=== PATIENT | female | born 1960 | race Caucasian/White ===

== ENCOUNTER 2018-12-29 10:35 | Emergency (ER) | payer OTHER ==
[2018-12-29 11:34] VITALS: BP 126/62
--- NOTE | 2018-12-29 11:44 | UC ---
General HPI - HPI Summary HPI Summary: on of last week, pt slipped on something wet near the registers and fell while at [employer]. she injured her R knee. she is here for ongoing pain and notes some swelling. - History of Current Complaint Chief Complaint: UCLowerExtremity Stated Complaint: S/P FALL RIGHT KNEE Time Seen by Provider: 12/29/18 11:33 Hx Obtained From: Patient Hx Last Menstrual Period: N/A Onset/Duration: Sudden Onset Timing: Constant Pain Intensity: 7 Associated Signs & Symptoms: Negative: Fever, Weakness - Allergy/Home Medications Allergies/Adverse Reactions: Allergies Allergy/AdvReac Type Severity Reaction Status Date / Time amoxicillin [From Augmentin] Allergy Swelling Verified 12/29/18 11:35 Of Face,Lips,& Throat clavulanic acid Allergy Swelling Verified 12/29/18 11:35 [From Augmentin] Of Face,Lips,& Throat Home Medications: Home Medications Cholecalciferol TAB* [Vitamin D TAB*] 400 unit PO DAILY 12/29/18 [History Confirmed 12/29/18] Thyroid,Pork [Establishment Guide Thyroid] 120 mg PO DAILY 12/29/18 [History Confirmed 12/29/18] PMH/Surg Hx/FS Hx/Imm Hx Endocrine History: Thyroid Disease - Family History Known Family History: Positive: Non-Contributory - Social History Alcohol Use: Rare Substance Use Type: None Smoking Status (MU): Former Smoker Review of Systems All Other Systems Reviewed And Are Negative: No Constitutional: Negative: Fever Skin: Negative: Rash Musculoskeletal: Positive: Edema - R knee. Negative: Decreased ROM Neurological: Negative: Weakness, Paresthesia, Numbness Physical Exam Triage Information Reviewed: Yes Appearance: Well-Appearing Vital Signs: Initial Vital Signs Temp 98.0 F 12/29/18 11:27 Pulse 86 12/29/18 11:27 Resp 17 12/29/18 11:27 BP 126/62 12/29/18 11:27 Pulse Ox 97 12/29/18 11:27 Vital Signs Reviewed: Yes Cardiovascular: Positive: RRR Musculoskeletal: Positive: Other: - RLE: hip, ankle, achilles and foot are without deformity or tenderness. knee=mildly swollen and tender over medial side of joint line. active rom is intact. post xray, no joint laxity. Neurological: Positive: Alert Psychological: Positive: Age Appropriate Behavior Skin Exam: Normal Diagnostics - Radiology No standard instances Radiology Interpretation Completed By: Radiologist - IMPRESSION: OSTEOARTHRITIS. NO ACUTE OSSEOUS INJURY. IF SYMPTOMS PERSIST, RECOMMEND REPEAT IMAGING. Course/Dx - Course Course Of Treatment: PT DECLINING NSAID TX - Differential Dx - Multi-Symptom Differential Diagnoses: Other - OA on xray.no concern for infection or fx. + swelling and medial joint line pain/tenderness thus possible meniscal injury. - Diagnoses Provider Diagnosis: Right knee pain, Swelling of joint, knee, right Discharge - Sign-Out/Discharge Documenting (check all that apply): Patient Departure All imaging exams completed and their final reports reviewed: Yes - Discharge Plan Condition: Stable Disposition: HOME Patient Education Materials: Swollen Knee Joint (ED), Knee Pain (ED) Referrals: Tex Hall MD [Medical Doctor] - As Soon As Possible Additional Instructions: USE ELLYN DURING DAY (REMOVE AT BEDTIME) PLUS USE CANE UNTIL CLEARED BY ORTHOPEDICS. - Billing Disposition and Condition Condition: STABLE Disposition: Home
[2018-12-29] MEDS ORDERED: Ibuprofen ADULT LIQ* 600 MG/30 ML UDC PO ONE (12:23)
== END 2018-12-29 12:33 | disposition home or self-care (01) ==
LOC: UCCORT 10:35
DX: M25.561 Pain in right knee (principal); M25.461 Effusion, right knee; Z87.891 Personal history of nicotine dependence; E07.9 Disorder of thyroid, unspecified
CPT/HCPCS: 99203; A9270-GY; G0463

== ENCOUNTER 2019-03-17 09:20 | Emergency (ER) | payer OTHER ==
--- OUTSIDE RECORDS SUMMARY | 2019-03-17 09:28 | XMS REPORT | Continuity of Care Document ---
:1960 External Reference #:[id number] Author Name Thanh Williamson MD (transmitted by agent of provider Jose Feliciano) Address [address] [place] [address] Care Team Providers Name Role Phone FARRAH Carrasco MD - Internal Care Team Information Extension Course Counselor Medicine Patient's Choice Care Team Information Extension Course Counselor Unavailable Problems Description No Information Available Social History Type Date Description Comments Sex Unknown ETOH Use Rarely consumes alcohol Tobacco Use Start: Unknown Patient has never smoked Smoking Status Reviewed: 02/15/19 Patient has never smoked Exercise Type/Frequency Does not exercise Allergies, Adverse Reactions, Alerts Active Allergies Reaction Severity Comments Date Augmentin neck turned blue 12/31/2018 Steroids reddness and sweating 12/31/2018 Medications Active Medications SIG Qnty Indications Ordering Provider Date Naproxen 1 by mouth 60tabs M17.11 Tex Hall, 12/31/2018 500mg Tablets twice a day w food 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 Thyroid 2 tabs by Unknown 60mg Tablets mouth daily 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 Thyroid 1 tab by mouth Unknown 30mg Tablets daily Acetaminophen 1/2 tab by Unknown 325mg Tablets mouth as needed for pain Immunizations CPT Code Status Date Vaccine Lot # [id number] Given 02/13/2019 Influ Virus Vaccine, Quadrivalent, Split Virus, Im Fluzone not PF Vital Signs Date Vital Result Comment 02/15/2019 2:15pm Height 60.5 inches 5'0.50" Weight 217.00 lb Heart Rate 92 /min BP Systolic 124 mmHg BP Diastolic 66 mmHg Respiratory Rate 18 /min BMI (Body Mass Index) 41.7 kg/m2 01/26/2019 9:23am Height 60.5 inches 5'0.50" Weight 220.00 lb Heart Rate 85 /min BP Systolic Sitting 128 mmHg BP Diastolic Sitting 84 mmHg Respiratory Rate 16 /min Pain Level 0 O2 % BldC Oximetry 98 % BMI (Body Mass Index) 42.3 kg/m2 Results Description No Information Available Procedures Description No Information Available Medical Devices Description No Information Available Encounters Type Date Location Provider Dx Diagnosis Office Visit 01/26/2019 [facility] Tex Hall, M17.11 Unilateral primary 9:15a at [place] osteoarthritis, right knee Office Visit 01/15/2019 [facility] Thanh E03.9 Hypothyroidism, 11:00a [place] unspecified Office Visit 12/31/2018 [facility] Tex Hall, M17.11 Unilateral primary 1:00p at [place] osteoarthritis, right knee M25.461 Effusion, right knee Assessments Date Code Description Provider 02/15/2019 Z00.00 Encounter for general adult medical Thanh Williamson MD examination without abnormal findings 02/15/2019 E03.9 Hypothyroidism, unspecified Thanh Williamson MD 01/26/2019 M17.11 Unilateral primary osteoarthritis, right Tex Hall MD knee 01/15/2019 E03.9 Hypothyroidism, unspecified Thanh Williamson MD 12/31/2018 M17.11 Unilateral primary osteoarthritis, right Tex Hall MD knee 12/31/2018 M25.461 Effusion, right knee Tex Hall MD Plan of Treatment Future Appointment(s):02/17/2019 11:00 am - Nurse Schedule Loc 73 at [facility]04/20/2019 9:30 am - Thanh Williamson MD at [facility] - Thanh Williamson MDZ00.00 Encounter for general adult medical examination without abnormal findingsNew Labs:Basic Metabolic Panel, Ordered: CBC Auto Diff, Ordered: 02/15/19Lipid Profile (Trig/Chol/HDL), Ordered: E03.9 Hypothyroidism, unspecifiedNew Labs:TSH (Thyroid Stim Horm), Ordered : 02/15/19Free T4 (Free Thyroxine), Ordered: 02/15/19T3 Free, Ordered: Vitamin D Total 25(Oh), Ordered: 02/15/19 Functional Status Description No Information Available Mental Status Description No Information Available Referrals Description No Information Available
--- OUTSIDE RECORDS SUMMARY | 2019-03-17 09:28 | XMS REPORT | Continuity of Care Document ---
:1960 External Reference #:[id number] Author Name Tex Hall MD (transmitted by agent of provider Margarito Bravo) Address [address] [place] [address] [place] [address] Care Team Providers Name Role Phone FARRAH Carrasco MD - Internal Care Team Information Stained Glass Joiner Medicine Patient's Choice Care Team Information Stained Glass Joiner Unavailable Problems Description No Information Available Social History Type Date Description Comments Sex Unknown ETOH Use Rarely consumes alcohol Tobacco Use Start: Unknown Patient has never smoked Smoking Status Reviewed: 01/26/19 Patient has never smoked Exercise Type/Frequency Does not exercise Allergies, Adverse Reactions, Alerts Active Allergies Reaction Severity Comments Date Augmentin neck turned blue 12/31/2018 Steroids reddness and sweating 12/31/2018 Medications Active Medications SIG Qnty Indications Ordering Provider Date Naproxen 1 by mouth 60tabs M17.11 Tex Hall, 12/31/2018 500mg Tablets twice a day w food 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 Thyroid 2 tabs by Unknown 60mg Tablets mouth daily 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 MOLD Thyroid 1 tab by mouth Unknown 30mg Tablets daily Acetaminophen 1/2 tab by Unknown 325mg Tablets mouth as needed for pain Ibuprofen 1 tab by mouth Unknown 200mg Tablets as needed Immunizations Description No Information Available Vital Signs Date Vital Result Comment 01/26/2019 9:23am Height 60.5 inches 5'0.50" Weight 220.00 lb Heart Rate 85 /min BP Systolic Sitting 128 mmHg BP Diastolic Sitting 84 mmHg Respiratory Rate 16 /min Pain Level 0 O2 % BldC Oximetry 98 % BMI (Body Mass Index) 42.3 kg/m2 01/15/2019 11:19am Height 60.5 inches 5'0.50" Weight 220.00 lb Heart Rate 88 /min BP Systolic 124 mmHg BP Diastolic 84 mmHg Respiratory Rate 16 /min Pain Level 0 O2 % BldC Oximetry 98 % room air BMI (Body Mass Index) 42.3 kg/m2 Results Description No Information Available Procedures Description No Information Available Medical Devices Description No Information Available Encounters Type Date Location Provider Dx Diagnosis Office Visit 01/15/2019 [facility] Thanh E03.9 Hypothyroidism, 11:00a [place] unspecified Office Visit 12/31/2018 [facility] Tex Hall, M17.11 Unilateral primary 1:00p [facility] AT [facility] right knee M25.461 Effusion, right knee Assessments Date Code Description Provider 01/26/2019 M17.11 Unilateral primary osteoarthritis, right Tex Hall MD knee 01/15/2019 E03.9 Hypothyroidism, unspecified Thanh Williamson MD 12/31/2018 M17.11 Unilateral primary osteoarthritis, right Tex Hall MD knee 12/31/2018 M25.461 Effusion, right knee Tex Hall MD Plan of Treatment Future Appointment(s):04/20/2019 9:30 am - Thanh Williamson MD at [facility]01/26/2019 - Tex Hall, MDM17.11 Unilateral primary osteoarthritis, right kneeComments:home exercises sheetsFollow up:Follow up: As needed Functional Status Description No Information Available Mental Status Description No Information Available Referrals Description No Information Available
[2019-03-17 09:37] VITALS: BP 133/84
== END 2019-03-17 10:11 | disposition left against medical advice (07) ==
LOC: UCCORT 09:20
DX: Z53.21 Procedure and treatment not carried out due to patient leaving prior to being seen by health care provider (principal)

== ENCOUNTER 2019-06-21 17:20 | Emergency (ER) | payer OTHER ==
--- OUTSIDE RECORDS SUMMARY | 2019-06-21 17:40 | XMS REPORT | Continuity of Care Document ---
:1960 External Reference #:[id number] Author Name Thanh Williamson MD (transmitted by agent of provider Katie Tan) Address [address] [place] [address] Care Team Providers Name Role Phone FARRAH Carrasco MD - Internal Care Team Information Rn Chemical Dependency Medicine Patient's Choice Care Team Information Rn Chemical Dependency Unavailable [facility] - Care Team Information Rn Chemical Dependency [phone] [facility] Care Team Information Rn Chemical Dependency [phone] Problems Description No Information Available Social History Type Date Description Comments Sex Unknown ETOH Use Rarely consumes alcohol Tobacco Use Start: Unknown Patient has never smoked Smoking Status Reviewed: 05/24/19 Patient has never smoked Exercise Type/Frequency Does not exercise Allergies, Adverse Reactions, Alerts Active Allergies Reaction Severity Comments Date Augmentin neck turned blue 12/31/2018 Steroids reddness and sweating 12/31/2018 Medications Active Medications SIG Qnty Indications Ordering Provider Date Tramadol HCL 1 by mouth four 20tabs G99.0 Thanh 05/24/2019 50mg Tablets times a day MD [place] Bupropion Hydrochloride 1 daily 30tabs F33.1 Thanh 04/28/2019 ER (SR) MD [place] 100mg Tablets ER 12HR Triamcinolone Acetonide apply to rash 1units S90.561A Thanh 03/17/2019 bid x 7 days MD [place] 0.1% Cream Naproxen 1 by mouth 60tabs M17.11 Tex Hall 12/31/2018 500mg Tablets twice a day w food METAL HANGER Thyroid 2 tabs by Unknown 60mg Tablets mouth daily METAL HANGER Thyroid 1 tab by mouth Unknown 30mg Tablets daily Acetaminophen 1/2 tab by Unknown 325mg Tablets mouth as needed for pain History Medications Oxycodone-Acetaminophen 1 every 6 20tabs G99.0 Thanh 03/29/2019 - 5-325mg Tablets hours as [place] 05/24/2019 needed pain Medications Administered in Office Medication SIG Qnty Indications Ordering Provider Date PPD Thanh Williamson MD 02/15/2019 Injection Immunizations CPT Code Status Date Vaccine Lot # [id number] Given 02/13/2019 Influ Virus Vaccine, Quadrivalent, Split Virus, Im Fluzone not PF Vital Signs Date Vital Result Comment 05/24/2019 10:02am Heart Rate 82 /min BP Systolic 120 mmHg BP Diastolic 86 mmHg 04/28/2019 1:50pm Weight 214.00 lb BP Systolic 150 mmHg BP Diastolic 90 mmHg Results Test Acquired Date Facility Test Result H/L Range Note Basic Metabolic 05/21/2019 [facility] Sodium 140 mmol/L Normal 135-[address] [place] [address] [phone] Potassium 4.1 mmol/L Normal 3.5-5.0 Chloride 105 mmol/L Normal 101-111 Co2 Carbon Dioxide 25 mmol/L Normal 22-32 Anion Gap 10 mmol/L Normal 2-11 Glucose 166 mg/dL High 70-100 Blood Urea Nitrogen 11 mg/dL Normal 6-24 Creatinine 0.51 mg/dL Normal 0.51-0.95 BUN/Creatinine Ratio 21.6 High 8-20 Calcium 9.9 mg/dL Normal 8.6-10.3 Egfr Non- 124.3 >60 Egfr 150.4 >60 1 Laboratory test 05/21/2019 [facility] Hemoglobin A1c 6.8 % High 4.0-5.[address] (Glyco HGB) [place] [address] [phone] Lipid Profile 05/21/2019 [facility] Triglycerides 431 3 (Trig/Chol/HDL) [address] mg/[place] [address] [phone] Cholesterol 175 mg/dL 4 HDL Cholesterol 31.8 mg/dL 5 LDL Cholesterol (SEE NOTE) mg/dL 6 Laboratory test 05/21/2019 [facility] LDL Cholesterol 108 mg/dL [address] [place] [address] [phone] Laboratory test 04/21/2019 [facility] TSH (Thyroid 1.07 Normal 0.34- finding [address] Stim Horm) mcIU/mL 5.60 [place] [address] [phone] Free T4 (Free Thyroxine) 0.63 ng/dL Normal 0.61-1.12 T3 Free 4.50 pg/mL High 2.5-3.9 Vitamin D Total 25(Oh) 22.6 ng/mL Normal 20-50 8 Basic Metabolic 04/21/2019 [facility] Sodium 137 mmol/L Normal 135-[address] [place] [address] [phone] Potassium 4.2 mmol/L Normal 3.5-5.0 Chloride 101 mmol/L Normal 101-111 Co2 Carbon Dioxide 24 mmol/L Normal 22-32 Anion Gap 12 mmol/L High 2-11 Glucose 188 mg/dL High 70-100 Blood Urea Nitrogen 13 mg/dL Normal 6-24 Creatinine 0.59 mg/dL Normal 0.51-0.95 BUN/Creatinine Ratio 22.0 High 8-20 Calcium 10.9 mg/dL High 8.6-10.3 Egfr Non- 105.1 >60 Egfr 127.1 >60 9 CBC Auto 04/21/2019 [facility] White Blood 6.7 10^3/uL Normal 3.5-10.[address] [place] [address] [phone] Red Blood Count 5.05 10^6/uL High 3.70-4.87 Hemoglobin 15.6 g/dL Normal 12.0-16.0 Hematocrit 44 % Normal 35-47 Mean Corpuscular Volume 87 fL Normal 80-97 Mean Corpuscular Hemoglobin 31 pg Normal 27-31 Mean Corpuscular HGB Conc 36 g/dL Normal 31-36 Red Cell Distribution Width 15 % Normal 10-15 Platelet Count 239 10^3/uL Normal 150-450 Mean Platelet Volume 7.7 fL Normal 7.4-10.4 Abs Neutrophils 3.9 10^3/uL Normal 1.5-7.7 Abs Lymphocytes 2.0 10^3/uL Normal 1.0-4.8 Abs Monocytes 0.6 10^3/uL Normal 0-0.8 Abs Eosinophils 0.1 10^3/uL Normal 0-0.6 Abs Basophils 0.1 10^3/uL Normal 0-0.2 Abs Nucleated RBC 0.0 10^3/uL Granulocyte % 58.5 % Lymphocyte % 30.2 % Monocyte % 8.3 % Eosinophil % 2.0 % Basophil % 1.0 % Nucleated Red Blood Cells % 0.2 Lipid Profile 04/21/2019 [facility] Triglycerides 648 mg/dL 10 (Trig/Chol/HDL) [address] [place] [address] [phone] Cholesterol 210 mg/dL 11 HDL Cholesterol 33.7 mg/dL 12 LDL Cholesterol (SEE NOTE) mg/dL 13 Laboratory test 04/21/2019 [facility] LDL Cholesterol 121 mg/dL [address] [place] [address] [phone] 1 Because ethnic data is not always readily available, this report includes an eGFR for both -Americans and non- Americans. The National Kidney Disease Education Program (NKDEP) does not endorse the use of the MDRD equation for patients that are not between the ages of 18 and 70, are , have extremes of body size, muscle mass, or nutritional status, or are non- or non-. According to the National Kidney Foundation, irrespective of diagnosis, the stage of the disease is based on the level of kidney function: Stage Description GFR(mL/min/1.73 m(2)) 1 Kidney damage with normal or decreased GFR 90 2 Kidney damage with mild decrease in GFR 60-89 3 Moderate decrease in GFR 30-59 4 Severe decrease in GFR 15-29 5 Kidney failure <15 (or dialysis) 2 Therapeutic target for the treatment of diabetes mellitus patients is <7% HBA1C, and in selective patients <6.0%. Please refer to [place] Diabetes Association diabetic care guidelines for further information. 3 Desirable: <150 Borderline High: 150-199 High: 200-499 Very High: >500 4 Desirable: <200 Borderline High: 200-239 High: >239 5 Low: <40 Desirable: 40-60 High: >60 6 Unable to calculate LDL as triglyceride is > 400 7 Desirable: <100 Near Optimal: 100-129 Borderline High: 130-159 High: 160-189 Very High: >189 8 Total 25-Hydroxyvitamin D2 and D3 (25-OH-VitD) <10 ng/mL (severe deficiency) 10-19 ng/mL (mild to moderate deficiency) 20-50 ng/mL (optimum levels) 51-80 ng/mL (increased risk of hypercalciuria) >80 ng/mL (toxicity possible) 9 Because ethnic data is not always readily available, this report includes an eGFR for both -Americans and non- Americans. The National Kidney Disease Education Program (NKDEP) does not endorse the use of the MDRD equation for patients that are not between the ages of 18 and 70, are , have extremes of body size, muscle mass, or nutritional status, or are non- or non-. According to the National Kidney Foundation, irrespective of diagnosis, the stage of the disease is based on the level of kidney function: Stage Description GFR(mL/min/1.73 m(2)) 1 Kidney damage with normal or decreased GFR 90 2 Kidney damage with mild decrease in GFR 60-89 3 Moderate decrease in GFR 30-59 4 Severe decrease in GFR 15-29 5 Kidney failure <15 (or dialysis) 10 Desirable: <150 Borderline High: 150-199 High: 200-499 Very High: >500 11 Desirable: <200 Borderline High: 200-239 High: >239 12 Low: <40 Desirable: 40-60 High: >60 13 Unable to calculate LDL as triglyceride is > 400 14 Desirable: <100 Near Optimal: 100-129 Borderline High: 130-159 High: 160-189 Very High: >189 Procedures Description No Information Available Medical Devices Description No Information Available Encounters Type Date Location Provider Dx Diagnosis Office Visit 04/28/2019 [facility] Thanh G99.0 Autonomic 1:45p [place] neuropathy in diseases classified elsewhere F33.1 Major depressive disorder, recurrent, moderate T45.1x5D Adverse effect of antineoplastic and immunosup drugs, subs 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 Z85.3 Personal history of malignant neoplasm of breast Office Visit 03/29/2019 [facility] Primary Thanh C50.919 Malignant 10:15a Sabine Williamson MD neoplasm of unsp site of unspecified female breast 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.0 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 Office Visit 03/17/2019 [facility] Griselda [place], S90.561A Insect bite 10:20a [place]in at [place] (nonvenomous), right [facility] ankle, initial encounter S90.562A Insect bite (nonvenomous), left ankle, initial encounter Office Visit 02/15/2019 2:00p [facility] Primary Thanh Williamson, Z00.00 Encntr for Care general adult medical exam w/o abnormal findings E03.9 Hypothyroidism, unspecified Z11.1 Encounter for screening for respiratory tuberculosis Office Visit 01/26/2019 Renny Robison M17.11 Unilateral primary 9:15a Orthopedics at [place] osteoarthritis, [place] right knee Office Visit 01/15/2019 [facility] Thanh E03.9 Hypothyroidism, 11:00a kaila Williamson MD Office Visit 12/31/2018 Renny Robison M17.11 Unilateral primary 1:00p Orthopedics at [place] osteoarthritis, [place] right knee M25.461 Effusion, right knee Assessments Date Code Description Provider 05/24/2019 G99.0 Autonomic neuropathy in diseases Thanh Williamson MD classified elsewhere 05/24/2019 F33.1 Major depressive disorder, recurrent, Thanh Williamson MD moderate 04/28/2019 G99.0 Autonomic neuropathy in diseases Thanh Williamson MD classified elsewhere 04/28/2019 F33.1 Major depressive disorder, recurrent, Thanh Williamson MD moderate 04/28/2019 T45.1x5D Adverse effect of antineoplastic and Thanh Williamson MD immunosuppressive drugs, subsequent encounter 04/28/2019 Z90.13 Acquired absence of bilateral breasts and Thanh Williamson MD nipples 04/28/2019 Z85.3 Personal history of malignant neoplasm of Thanh Williamson MD breast 03/29/2019 C50.919 Malignant neoplasm of unspecified site of Thanh Williamson MD unspecified female breast 03/29/2019 G99.0 Autonomic neuropathy in diseases Thanh Williamson MD classified elsewhere 03/17/2019 S90.561A Insect bite (nonvenomous), right ankle, FLOYD Smith initial encounter 03/17/2019 S90.562A Insect bite (nonvenomous), left ankle, FLOYD Smith initial encounter 02/17/2019 Z11.1 Encounter for screening for respiratory Nurse Schedule Loc 73 tuberculosis 02/15/2019 Z00.00 Encounter for general adult medical Thanh Williamson MD examination without abnormal findings 02/15/2019 E03.9 Hypothyroidism, unspecified Thanh Williamson MD 02/15/2019 Z11.1 Encounter for screening for respiratory Thanh Williamson MD tuberculosis 01/26/2019 M17.11 Unilateral primary osteoarthritis, right Tex Hall MD knee 01/15/2019 E03.9 Hypothyroidism, unspecified Thanh Williamson MD 12/31/2018 M17.11 Unilateral primary osteoarthritis, right Tex Hall MD knee 12/31/2018 M25.461 Effusion, right knee Tex Hall MD Plan of Treatment Future Appointment(s):08/26/2019 10:30 am - FLOYD Ibarra at [facility]/2019 - Thanh Williamson MDG99.0 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New Medication:Tramadol HCL 50 mg - 1 by mouth four times a dayF33.1 Major depressive disorder, recurrent, moderateFollow up:3 months Functional Status Description No Information Available Mental Status Description No Information Available Referrals Refer to Reason for Referral Status Appt [facility] Created [address] [place] [address] [phone]
--- OUTSIDE RECORDS SUMMARY | 2019-06-21 17:40 | XMS REPORT | Continuity of Care Document ---
:1960 External Reference #:[id number] Author Name Thanh Williamson MD (transmitted by agent of provider Katie Tan) Address [address] [place] [address] Care Team Providers Name Role Phone FARRAH Carrasco MD - Internal Care Team Information Occ Therapist [phone] Medicine Patient's Choice Care Team Information Occ Therapist Unavailable [facility] - Care Team Information Occ Therapist [phone] Multi-Specialty Problems Description No Information Available Social History Type Date Description Comments Sex Unknown ETOH Use Rarely consumes alcohol Tobacco Use Start: Unknown Patient has never smoked Smoking Status Reviewed: 03/29/19 Patient has never smoked Exercise Type/Frequency Does not exercise Allergies, Adverse Reactions, Alerts Active Allergies Reaction Severity Comments Date Augmentin neck turned blue 12/31/2018 Steroids reddness and sweating 12/31/2018 Medications Active Medications SIG Qnty Indications Ordering Provider Date Bupropion Hydrochloride 1 daily 30tabs F33.1 Thanh 04/28/2019 ER (SR) MD Clay 100mg Tablets ER 12HR Oxycodone-Acetaminophen 1 every 6 hours 20tabs G99.0 Thanh 03/29/2019 as needed pain MD Clay 5-325mg Tablets Triamcinolone Acetonide apply to rash 1units S90.561A Thanh 03/17/2019 bid x 7 days MD Clay 0.1% Cream Naproxen 1 by mouth 60tabs M17.11 Tex Hall, 12/31/2018 500mg Tablets twice a day w food RN ORTHOPAEDICS Thyroid 2 tabs by Unknown 60mg Tablets mouth daily RN ORTHOPAEDICS Thyroid 1 tab by mouth Unknown 30mg Tablets daily Acetaminophen 1/2 tab by Unknown 325mg Tablets mouth as needed for pain Medications Administered in Office Medication SIG Qnty Indications Ordering Provider Date TISH Williamson MD 02/15/2019 Injection Immunizations CPT Code Status Date Vaccine Lot # [id number] Given 02/13/2019 Influ Virus Vaccine, Quadrivalent, Split Virus, Im Fluzone not PF Vital Signs Date Vital Result Comment 04/28/2019 1:50pm Weight 214.00 lb BP Systolic 150 mmHg BP Diastolic 90 mmHg 03/29/2019 10:23am Weight 217.00 lb Heart Rate 68 /min BP Systolic 142 mmHg BP Diastolic 82 mmHg Results Test Acquired Date Facility Test Result H/L Range Note Laboratory test 04/21/2019 [facility] TSH 1.07 Normal 0.34- 5.[address] (Thyroid mcIU/[place] [address] Stim [phone] Horm) Free T4 (Free Thyroxine) 0.63 ng/dL Normal 0.61-1.12 T3 Free 4.50 pg/mL High 2.5-3.9 Vitamin D Total 25(Oh) 22.6 ng/mL Normal 20-50 1 Basic Metabolic 04/21/2019 [facility] Sodium 137 mmol/L Normal 135-[address] [place] [address] [phone] Potassium 4.2 mmol/L Normal 3.5-5.0 Chloride 101 mmol/L Normal 101-111 Co2 Carbon Dioxide 24 mmol/L Normal 22-32 Anion Gap 12 mmol/L High 2-11 Glucose 188 mg/dL High 70-100 Blood Urea Nitrogen 13 mg/dL Normal 6-24 Creatinine 0.59 mg/dL Normal 0.51-0.95 BUN/Creatinine Ratio 22.0 High 8-20 Calcium 10.9 mg/dL High 8.6-10.3 Egfr Non- 105.1 >60 Egfr 127.1 >60 2 CBC Auto 04/21/2019 [facility] White Blood 6.7 10^3/uL Normal 3.5-10.[address] [place] [address] [phone] Red Blood Count 5.05 10^6/uL High 3.70-4.87 [...] Blood Cells % 0.2 Lipid Profile 04/21/2019 [facility] Triglycerides 648 mg/dL 3 (Trig/Chol/HDL) [address] [place] [address] [phone] Cholesterol 210 mg/dL 4 HDL Cholesterol 33.7 mg/dL 5 LDL Cholesterol (SEE NOTE) mg/dL 6 Laboratory test 04/21/2019 [facility] LDL Cholesterol 121 mg/dL [address] [place] [address] [phone] 1 Total 25-Hydroxyvitamin D2 and D3 (25-OH-VitD) <10 ng/mL (severe deficiency) 10-19 ng/mL (mild to moderate deficiency) 20-50 ng/mL (optimum levels) 51-80 ng/mL (increased risk of hypercalciuria) >80 ng/mL (toxicity possible) 2 Because ethnic data is not always readily [...] 15-29 5 Kidney failure <15 (or dialysis) 3 Desirable: <150 Borderline High: 150-199 High: [...] Date Location Provider Dx Diagnosis Office Visit 03/29/2019 [facility] Thanh C50.919 Malignant neoplasm 10:15a MD Clay [facility] site of unspecified female breast 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.0 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 Office Visit 03/17/2019 [facility] Griselda [place], S90.561A Insect bite 10:20a Walk-in at [place] (nonvenomous), right [facility] ankle, initial encounter S90.562A Insect bite (nonvenomous), left ankle, initial encounter Office Visit 02/15/2019 2:00p [facility] Primary Thanh Williamson, Z00.00 Encntr for Care general adult medical exam w/o abnormal findings E03.9 Hypothyroidism, unspecified Z11.1 Encounter for screening for respiratory tuberculosis Office Visit 01/26/2019 [facility] 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 Hall MD osteoarthritisJared right knee Office Visit 01/15/2019 [facility] Thanh E03.9 Hypothyroidism, 11:00a kaila Williamson MD Office Visit 12/31/2018 [facility] M17.11 Unilateral primary 1:00p Orthopedics MD bree [place] right knee M25.461 Effusion, right knee Assessments Date Code Description Provider 04/28/2019 G99.0 Autonomic neuropathy in diseases Thanh Williamson MD classified elsewhere 04/28/2019 F33.1 Major depressive disorder, recurrent, Thanh Williamson MD moderate 03/29/2019 C50.919 Malignant neoplasm of unspecified site [...] Tex Hall MD Plan of Treatment Future Appointment(s):05/24/2019 9:45 am - Thanh Williamson MD at [facility]04/28/2019 - Thanh Williamson MDG99.0 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Follow up:may. Major depressive disorder, recurrent, moderateNew Medication:Bupropion Hydrochloride ER (SR) 100 mg - 1 daily Functional Status Description No Information Available Mental Status Description No Information Available Referrals Refer to Reason for Referral Status Appt Date [facility] Created [address] [place] [address] [phone]
--- NOTE | 2019-06-21 18:26 | UC ---
UC General HPI - HPI Summary HPI Summary: 58-year-old woman comes in with a chief complaint of headache and feeling lightheaded and not feeling right for about a week. Does report drinking lots of water and was feeling hungry. She has been diagnosed with diabetes2 and was on oral medications but it made her feel too tired so she stopped taking that. She does also have a history of hypothyroidism and is on thyroid medications. Her doctor retired and she is unable to see anybody else the office until 13 July. Denies any chest pain shortness of breath or palpitations. - History of Current Complaint Chief Complaint: UCGeneralIllness Stated Complaint: DIZZY, HEADACHE Time Seen by Provider: 06/21/19 18:13 Hx Last Menstrual Period: none Pain Intensity: 0 - Allergy/Home Medications Allergies/Adverse Reactions: Allergies Allergy/AdvReac Type Severity Reaction Status Date / Time amoxicillin [From Augmentin] Allergy Swelling Verified 06/21/19 18:11 Of Face,Lips,& Throat clavulanic acid Allergy Swelling Verified 06/21/19 18:11 [From Augmentin] Of Face,Lips,& Throat steroids AdvReac Diaphoresis Uncoded 06/21/19 18:11 PMH/Surg Hx/FS Hx/Imm Hx Previously Healthy: Yes Endocrine History: Diabetes, Hypothyroidism - Surgical History Surgical History: Yes Surgery Procedure, Year, and Place: masectomy - Family History Known Family History: Positive: Non-Contributory - Social History Alcohol Use: Occasionally Substance Use Type: None Smoking Status (MU): Never Smoked Tobacco Review of Systems All Other Systems Reviewed And Are Negative: Yes Constitutional: Positive: Other - see hpi Skin: Positive: Negative Eyes: Positive: Negative ENT: Positive: Negative Respiratory: Positive: Negative Cardiovascular: Positive: Negative Gastrointestinal: Positive: Negative Motor: Positive: Negative Neurovascular: Positive: Negative Musculoskeletal: Positive: Negative Neurological: Positive: Negative Psychological: Positive: Anxious Is Patient Immunocompromised?: No Physical Exam Triage Information Reviewed: Yes Appearance: Well-Appearing, No Pain Distress, Well-Nourished Vital Signs: Initial Vital Signs Temp 98.3 F 06/21/19 17:59 Pulse 86 06/21/19 17:59 Resp 18 06/21/19 17:59 BP 135/91 06/21/19 17:59 Pulse Ox 97 06/21/19 17:59 Vital Signs Reviewed: Yes Eye Exam: Normal Eyes: Positive: Conjunctiva Clear ENT: Positive: Pharynx normal Neck: Positive: Supple Respiratory: Positive: Lungs clear, Normal breath sounds, No respiratory distress Cardiovascular: Positive: RRR Musculoskeletal: Positive: Strength Intact, ROM Intact, No Edema - No calf tenderness. Neurological: Positive: Alert, Muscle Tone Normal Psychological: Positive: Age Appropriate Behavior Skin Exam: Normal Course/Dx - Course Course Of Treatment: Fingerstick blood glucose was 148. Orthostatics were normal. I discussed all this with the patient. She is concerned the possibility that her thyroid is the cause of her symptoms. Patient denies any chest pain shortness of breath or palpitations. CBC, CMP and TSH are all pending. We discussed that if she did not improve or she worsens she should go to the emergency department. - Diagnoses Provider Diagnosis: Dizziness, Fatigue, Headache Discharge ED - Sign-Out/Discharge Documenting (check all that apply): Patient Departure All imaging exams completed and their final reports reviewed: No Studies - Discharge Plan Condition: Stable Disposition: HOME Patient Education Materials: Dizziness (ED), Acute Headache (ED), Fatigue (ED) Referrals: Thanh Williamson MD [Primary Care Provider] - Additional Instructions: FOLLOW UP WITH YOUR DOCTOR. CBC, CMP AND TSH BLOODWORK RESULTS ARE PENDING. GET REEVALUATED SOONER IF NOT IMPROVING OR GO TO THE EMERGENCY DEPARTMENT IF WORSE OR ANY QUESTIONS OR CONCERNS. - Billing Disposition and Condition Condition: STABLE Disposition: Home
[2019-06-21 18:59] VITALS: BP 138/83
[2019-06-22 10:54] LABS: ABS Basophils 0.1 10^3/ul (0-0.2); ABS Eosinophils 0.1 10^3/ul (0-0.6); ABS Lymphocytes 2.2 10^3/ul (1.0-4.8); ABS Monocytes 0.6 10^3/ul (0-0.8); ABS Neutrophils 4.5 10^3/ul (1.5-7.7); ABS Nucleated RBC 0.1 10^3/ul; Hematocrit 42 % (35-47); Hemoglobin 14.8 g/dL (12.0-16.0); Lymphocyte % 28.5 %; Mean Corpuscular HGB Conc 36 g/dL (31-36); Mean Corpuscular Hemoglobin 31 pg (27-31); Mean Corpuscular Volume 88 fL (80-97); Mean Platelet Volume 8.2 fL (7.4-10.4); Platelet Count 250 10^3/uL (150-450); Red Blood Count 4.72 10^6 /uL (3.70-4.87); Red Cell Distribution Width 15 % (10-15); White Blood Count 7.5 10^3/uL (3.5-10.8)
[2019-06-22 10:57] LABS: Albumin 4.5 g/dL (3.2-5.2); Calcium 10.3 mg/dL (8.6-10.3); Total Bilirubin 0.7 mg/dL (0.2-1.0)
[2019-06-22 11:03] LABS: Albumin/Globulin Ratio 1.7 (1-3); BUN/Creatinine Ratio 25.5 (8-20); EGFR African American 150.4 (>60); EGFR Non-African American 124.3 (>60); Globulin 2.6 g/dL (2-4); Total Protein 7.1 g/dL (6.4-8.9)
[2019-06-22 11:19] LABS: TSH (Thyroid Stimulating Horm) 0.8 mcIU/mL (0.34-5.60)
== END 2019-06-21 19:28 | disposition home or self-care (01) ==
LOC: UCCORT 17:20
DX: R42 Dizziness and giddiness (principal); R53.83 Other fatigue; R51 Headache; E11.9 Type 2 diabetes mellitus without complications; E03.9 Hypothyroidism, unspecified; Z88.1 Allergy status to other antibiotic agents; Z88.8 Allergy status to other drugs, medicaments and biological substances
CPT/HCPCS: 36415; 80053; 84443; 85025; 99212; G0463